=== PATIENT | male | born 1940 | race Caucasian/White ===

== ENCOUNTER 2018-10-12 12:10 | Day surgery (SDC) | payer OTHER, MEDICARE ==
[2018-10-12] MEDS ORDERED: ceFAZolin 2 GM/DEXTROSE 100 ML IV ONE (12:38)
[2018-10-12] MEDS ORDERED: LR 1,000 ML IV ONE (12:41)
[2018-10-12] MEDS ORDERED: BUPIVACAINE 0.5% 30 ML SDV ONE (13:01)
[2018-10-12] MEDS ORDERED: POLYMYXIN B SULFATE 500,000 UNIT/10 ML SYR IRR ONE (13:02)
--- NOTE | 2018-10-12 13:26 | PDHPUP ---
History & Physical Update H&P update statement: This history and physical update is based on an assessment of the patient which was completed after admission or registration (within 24 hours), but prior to the surgery/procedure. H&P update: H&P reviewed & patient examined, no change in patient's condition since H&P completed
--- NOTE | 2018-10-12 13:29 | PDANEPAE ---
ANE History of Present Illness Bunion ANE Past Medical History - Cardiovascular History Hx Hypertension: Yes Hx Arrhythmias: No Hx Chest Pain: No Hx Coronary Artery / Peripheral Vascular Disease: Yes Hx CHF / Valvular Disease: No Hx Palpitations: No Cardiovascular History Comment: cad with stents. 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 htn- controlled. hypercholesterolemia. PAD. followed by dr triana - Pulmonary History Hx COPD: No Hx Asthma/Reactive Airway Disease: No Hx Recent Upper Respiratory Infection: No Hx Oxygen in Use at Home: No Hx Sleep Apnea: No Sleep Apnea Screening Result - Last Documented: Positive Pulmonary History Comment: eitan triggers - Neurologic History Hx Cerebrovascular Accident: No Hx Seizures: No Hx Dementia: No - Endocrine History Hx Diabetes: No - Renal History Hx Renal Disorders: Yes Renal History Comment: bph - Liver History Hx Hepatic Disorders: No - Neurological & Psychiatric Hx Hx Neurological and Psychiatric Disorders: No - Cancer History Hx Cancer: No - Congenital Disorder History Hx Congenital Disorders: No - GI History Hx Gastrointestinal Disorders: Yes Gastrointestinal History Comment: hx of reflux-uses tums prn. constipation following surgery - Other Health History Other Health History: wears glasses. arthritis - Chronic Pain History Chronic Pain: Yes (thumbs, left great toe) - Surgical History Prior Surgeries: 01/2012 cardiac surgery. 08/2017 right KASHIF and revision ANE Review of Systems Review of Systems: - Exercise capacity METS (RN): 4 METS ANE Patient History - Allergies Allergies/Adverse Reactions: Iodinated Contrast- Oral and IV Dye Allergy (Verified 10/12/18 12:43) Possible heart block metoprolol Allergy (Verified 10/12/18 12:43) Possible heart block beta blockers Allergy (Uncoded 09/29/18 10:06) possible heart block contrast dye Allergy (Uncoded 09/29/18 10:06) possible heart block - Home Medications Home medications: home medication list seen and reviewed Home Medications: Lisinopril [Zestril 2.5 mg (RX)] 1.25 mg 01/17/12 [Last Taken 2 Days Ago ~] Tamsulosin HCl [Flomax 0.4 MG (RX)] 01/17/12 [Last Taken 1 Day Ago ~10/11/18] Aspirin 81mg (*) 09/29/18 [Last Taken 1 Week Ago ~10/05/18] Atorvastatin Calcium 09/29/18 [Last Taken 1 Day Ago ~10/11/18] Herbals/Supplements -Info Only 09/29/18 [Last Taken 1 Week Ago ~10/05/18] Tylenol 09/29/18 [Last Taken 1 Day Ago ~10/11/18] - NPO status NPO Since - Liquids (Date): 10/12/18 NPO Since - Liquids (Time): 10:00 NPO Since - Solids (Date): 10/12/18 NPO Since - Solids (Time): 04:30 - Anes Hx Anes Hx: no prior problems - Smoking Hx Smoking Status: Former smoker - Family Anes Hx Family Hx Anesthesia Complications: none ANE Labs/Vital Signs - Vital Signs Blood Pressure: 150/91 Heart Rate: 68 Respiratory Rate: 14 O2 Sat (%): 94 Height: 175.26 cm Weight: 81.647 kg ANE Physical Exam - Airway Neck exam: FROM Mallampati Score: Class 2 - Pulmonary Pulmonary: no respiratory distress - Cardiovascular Cardiovascular: regular rate and rhythym - ASA Status ASA Status: III ANE Anesthesia Plan Anesthesia Plan: MAC
[2018-10-12] MEDS ORDERED: OXYCODONE/APAP 5/325 TAB PO PRN (13:33)
[2018-10-12] MEDS ORDERED: DEXAMETHASONE 4 MG/ML VIAL ONE (13:33)
[2018-10-12] MEDS ORDERED: ONDANSETRON DISINTEGRATING 4 MG TAB PO PRN (13:33)
[2018-10-12] MEDS ORDERED: ONDANSETRON 4 MG/2 ML VIAL IVP PRN (13:33)
[2018-10-12] MEDS ORDERED: MIDAZOLAM 2 MG/2 ML VIAL IVP ONE (13:35)
[2018-10-12] MEDS ORDERED: LIDOCAINE 2% 5 ML SDV ONE (13:43)
[2018-10-12] MEDS ORDERED: PROPOFOL 200 MG/20 ML VIAL ONE (13:43)
[2018-10-12] MEDS ORDERED: PROPOFOL/EMULSION 500 MG/50 ML BOTTLE IV ONE (13:43)
[2018-10-12] MEDS ORDERED: NALOXONE HCL 0.4 MG/ML INJ IVP PRN (15:04)
[2018-10-12] MEDS ORDERED: fentaNYL 100 MCG/2 ML INJ IVP PRN (15:04)
--- NOTE | 2018-10-12 15:05 | POSTANESTH ---
Post Anesthetic Evaluation Cardiovascular Status: Similar to Pre-Op Cond Respiratory Status: Similar to Pre-op Cond. Level of Consciousness/Mental Status: Alert and Oriented Pain Control: Adequate, Prn Tx Ordered Nausea/Vomiting Control: Adequate, Prn Tx Ordered Complications Possibly Related to Anesthesia: None Noted
[2018-10-12 17:20] VITALS: BP 144/100
--- NOTE | 2018-10-13 13:55 | GOP ---
[f rep st] OPERATIVE REPORT DATE OF OPERATION: 10/12/2018 SURGEON: Nik Keller DPM FIELD ADMINISTRATIVE ASSISTANT: None. ANESTHESIA: MAC with local, 20 mL of 0.5% Marcaine plain. PREOPERATIVE DIAGNOSIS: 1. Hallux rigidus, left foot. 2. Synovitis, left foot. 3. Loose body in joint, left foot. POSTOPERATIVE DIAGNOSIS: 1. Hallux rigidus, left foot. 2. Synovitis, left foot. 3. Loose body in joint, left foot. PROCEDURE PERFORMED: 1. First metatarsophalangeal joint implant arthroplasty, left foot. 2. Arthrocentesis, left foot. 3. Excision of loose body in joint, left foot. FINDINGS: Gross findings are consistent with the diagnosis. ESTIMATED BLOOD LOSS: Zero. INDICATIONS: Patient with long-standing pain and discomfort in the left big toe joint. The patient has attempted and failed nonsurgical treatment including different types of shoes, shoe inserts, ice, anti-inflammatory medication, rest, and activity modification. The patient has elected to undergo s urgical intervention. DESCRIPTION OF PROCEDURE: After identification, the patient was brought in the operating room and pl aced on the operating room table in the supine position. Following IV sedation, local anesthesia was obtained on the patient's left foot utilizing a total of 20 mL of 0.5% Marcaine plain. The foot was then scrubbed, prepped, and draped in the usual aseptic manner. Pneumatic ankle tourniquet was plac ed on the patient's left ankle with ample padding. An Esmarch bandage was utilized to examine the pa tient's left lower extremity, and the pneumatic ankle tourniquet was inflated. Attention was first directed to the medial aspect of the patient's left foot, where a 5 cm linear jennifer gitudinal incision was made at the medial aspect of the 1st metatarsophalangeal joint. This incision was deepened through the subcutaneous tissue to the level of the joint capsule, with care being take n to identify and retract all vital neural and vascular structures. Bleeders were ligated and cauter ized as necessary. Capsular structures were reflected dorsally and plantarly, thus exposing the 1st metatarsophalangeal joint at the operative site. It was noted that the cartilage was nearly 100% den uded at the 1st metatarsal head. Cartilage was intact at the 1st base of the proximal phalanx. All osteophytes were excised and passed from the operative field. Several loose bodies were present with in the joint, which were removed in toto and passed from the field. These loose bodies were osseous in nature. McGlamry elevator was inserted into the 1st metatarsophalangeal joint from medial to late ral to serve as a release of adhesions. The joint was more freely mobile at this point. Attention was then directed to the 1st metatarsal head, where using a guidewire for placement, the 1s t metatarsal head was drilled using standard technique via Cartiva. After sizing, a 10 mm Cartiva im plant was placed into the 1st metatarsal head using the standard technique. Fixation was noted to be extremely stable, and the implant was approximately 3 mm proud into the 1st metatarsophalangeal join t space at this time. The joint was put through range of motion and was noted to be excellent with n o bony apposition. All rough edges were then smoothed with a bone bur. The joint was then flushed w ith normal sterile saline solution. The capsular structures were reapproximated utilizing a 3-0 Vicr yl, and the skin was reapproximated using a 5-0 Vicryl in a running subcuticular suture technique. 4 mg of dexamethasone was injected into the operative site. The incision site was then dressed with S misael-Strips, 4x4 gauze, Webril, Chato, and an Malachi bandage. The patient was transported to postop [facility], with vital signs stable and vascular status intact to the left foot. The patient tolerated th e procedure and anesthesia well. HEMOSTASIS: Left pneumatic ankle tourniquet inflated to 250 mmHg for 27 minutes. MATERIALS: Cartiva implant x1. 3-0 and 5-0 Vicryl. INJECTABLES: 4 mg of dexamethasone. CONDITION: Stable. /[id number]/MODL
== END 2018-10-12 17:09 | disposition home or self-care (01) ==
LOC: FSGY 12:10
PROVIDERS: ATTEND Podiatrist
PROC: 0SRN0JZ Replacement of Left Metatarsal-Phalangeal Joint with Synthetic Substitute, Open Approach (ICD-10-PCS; principal; 2018-10-12 14:15)
DX: M20.22 Hallux rigidus, left foot (principal); M24.075 Loose body in left toe joint(s); K21.9 Gastro-esophageal reflux disease without esophagitis; I25.2 Old myocardial infarction; I10 Essential (primary) hypertension; G62.9 Polyneuropathy, unspecified; D64.9 Anemia, unspecified; I25.10 Atherosclerotic heart disease of native coronary artery without angina pectoris; E78.5 Hyperlipidemia, unspecified; N40.0 Benign prostatic hyperplasia without lower urinary tract symptoms; Z87.891 Personal history of nicotine dependence; Z96.641 Presence of right artificial hip joint; Z95.2 Presence of prosthetic heart valve; Z95.5 Presence of coronary angioplasty implant and graft
CPT/HCPCS: J0690; J1100; J2250; J2704